=== PATIENT | female | born 1985 | race Caucasian/White ===

== ENCOUNTER 2023-05-24 07:47 | Outpatient (OUT) | payer OTHER, SELFPAY ==
[2023-05-24 08:39] LABS: Basophils Percent Auto 0.5 % (0.2-2.0); Eosinophils Absolute Auto 0.2 10^3/uL (0.0-0.7); Eosinophils Percent Auto 3.7 % (0.9-7.0); Hematocrit 37.6 % (36.0-48.0); Hemoglobin 12.5 g/dL (12.0-16.0); Immature Granulocytes Abs Auto 0.03 10^3/uL (0.00-0.03); Immature Granulocytes Pct Auto 0.5 % (0.0-0.5); Lymphocytes Absolute Auto 1.8 10^3/uL (1.2-3.8); Lymphocytes Percent Auto 27.5 % (20.5-60.0); Mean Corpuscular HGB Conc 33.2 g/dL (29.9-35.2); Mean Corpuscular Hemoglobin 30.7 pg (26.7-34.0); Mean Corpuscular Volume 92.4 fL (81.0-99.0); Mean Platelet Volume 10.2 fL (9.5-13.5); Monocytes Absolute Auto 0.8 10^3/uL (0.3-0.8); Monocytes Percent Auto 11.9 % (1.7-12.0); Neutrophils Absolute Auto 3.6 10^3/uL (1.4-6.5); Neutrophils Percent Auto 55.9 % (43.0-75.0); Platelet Count 261 10^3/uL (150-450); Red Blood Count 4.07 10^6/uL (4.20-5.40); Red Cell Distribution Width 12.8 % (11.0-15.0); White Blood Count 6.5 10^3/uL (4.0-11.0)
[2023-05-24 08:44] LABS: Estimated Average Glucose 94 mg/dL; Glycohemoglobin A1C 4.9 % (4.5-6.2)
[2023-05-24 08:57] LABS: Alanine Aminotransferase 23 U/L (14-59); Albumin Globulin Ratio 0.9; Albumin Level 3.5 g/dL (3.4-5.0); Alkaline Phosphatase 77 U/L (46-116); Anion Gap 11.4; Aspartate Amino Transferase 15 U/L (15-37); BUN Creatinine Ratio 16.9; Bilirubin Total 0.4 mg/dL (0.2-1.0); Calcium 8.9 mg/dL (8.5-10.1); Carbon Dioxide 28.5 mmol/L (21.0-32.0); Chloride 101 mmol/L (98-107); Chol HDL Ratio 3.8; Cholesterol 230 mg/dL (<=200); Estimated GFR (African America >60 (>=60); Estimated GFR (Non-African Ame >60 (>=60); Free T3 2.48 pg/mL (2.18-3.98); Globulin 3.8 g/dL; Glucose 91 mg/dL (74-106); HDL Cholesterol 61 mg/dL (40-60); Potassium 3.9 mmol/L (3.5-5.1); Sodium 137 mmol/L (136-145); Thyroid Stimulating Hormone 2.367 uIU/mL (0.358-3.740); Total Protein 7.3 g/dL (6.4-8.2); Triglycerides 214 mg/dL (<=150); VLDL CHOLESTEROL 42.8 mg/dL
[2023-05-25 07:12] LABS: Vitamin D, 25-Hydroxy 27.9 ng/mL (30.0-100.0)
[2023-05-25 11:12] LABS: Insulin 5.5 uIU/mL (2.6-24.9)
== END 2023-05-24 07:48 | disposition home or self-care (01) ==
LOC: LAB 07:50
PROVIDERS: PCP Nurse Practitioner Family; Visit Provider Nurse Practitioner Family
DX: Z00.00 Encounter for general adult medical examination without abnormal findings (principal)
CPT/HCPCS: 36415; 80053; 80061; 82306; 83036; 83525; 83540; 84436; 84443; 84481; 85025

== ENCOUNTER 2024-06-27 19:34 | Outpatient (REF) | payer OTHER, SELFPAY ==
[2024-07-03 14:09] LABS: Age Gdln ACOG Testing Note (.); HPV Aptima Negative (Negative); IGP, Aptima HPV, rfx 16/18,45 Note (.)
== END 2024-06-27 19:35 | disposition home or self-care (01) ==
LOC: LAB 19:34
PROVIDERS: PCP Nurse Practitioner Family; Visit Provider Physician Assistant
DX: Z01.419 Encounter for gynecological examination (general) (routine) without abnormal findings (principal)
CPT/HCPCS: 87624; 88175

== ENCOUNTER 2025-05-03 07:53 | Outpatient (OUT) | payer OTHER, SELFPAY ==
[2025-05-03 09:06] LABS: Hematocrit 38.5 % (36.0-48.0); Hemoglobin 12.7 g/dL (12.0-16.0); Immature Granulocytes Abs Auto 0.02 10^3/uL (0.00-0.03); Immature Granulocytes Pct Auto 0.3 % (0.0-0.5); Lymphocytes Absolute Auto 1.8 10^3/uL (1.2-3.8); Mean Corpuscular HGB Conc 33.0 g/dL (29.9-35.2); Mean Corpuscular Hemoglobin 30.5 pg (26.7-34.0); Mean Corpuscular Volume 92.3 fL (81.0-99.0); Platelet Count 296 10^3/uL (150-450); Red Blood Count 4.17 10^6/uL (4.20-5.40); White Blood Count 7.1 10^3/uL (4.0-11.0)
[2025-05-03 09:47] LABS: Iron 95.0 ug/dL (50.0-170.0)
[2025-05-03 09:56] LABS: Alanine Aminotransferase 26 U/L (14-59); Albumin Globulin Ratio 1.0; Albumin Level 3.8 g/dL (3.4-5.0); Alkaline Phosphatase 71 U/L (46-116); Anion Gap 8.9; Aspartate Amino Transferase 19 U/L (15-37); Blood Urea Nitrogen 10.0 mg/dL (7.0-18.0); Calcium 9.2 mg/dL (8.5-10.1); Carbon Dioxide 30.2 mmol/L (21.0-32.0); Chloride 104 mmol/L (98-107); Cholesterol 233 mg/dL (<=200); Estimated GFR (African America >60 (>=60 mL/min/1.73m^2); Estimated GFR (Non-African Ame >60 (>=60 mL/min/1.73m^2); Free T3 2.80 pg/mL (2.18-3.98); Globulin 3.8 g/dL; Glucose 99 mg/dL (74-106); HDL Cholesterol 55 mg/dL (40-60); Potassium 4.1 mmol/L (3.5-5.1); Sodium 139 mmol/L (136-145); Thyroid Stimulating Hormone 1.955 uIU/mL (0.358-3.740); Total Protein 7.6 g/dL (6.4-8.2); Triglycerides 143 mg/dL (<=150); VLDL CHOLESTEROL 28.6 mg/dL
== END 2025-05-03 07:54 | disposition home or self-care (01) ==
LOC: LAB 07:55
PROVIDERS: PCP Nurse Practitioner Family; Visit Provider Family Medicine
DX: Z00.00 Encounter for general adult medical examination without abnormal findings (principal)
CPT/HCPCS: 36415; 80053; 80061; 82306; 83036; 83540; 84436; 84443; 84481; 85025

== ENCOUNTER 2025-06-06 15:08 | Outpatient (OUT) | payer OTHER, SELFPAY ==
--- OUTSIDE RECORDS SUMMARY | 2024-04-25 06:00 | XMS_ITS ---
Author Organization [facility] in [place] Address [address] [place] [address] Care Team Providers Care Mounter Name Role Phone Margarita Kurtz Primary Care Provider Allergies No Known Allergies REASON FOR VISIT Annual Wellness Medications Medication SIG (Take, Route, Frequency, Duration) Notes Start Date End Date Status Levothyroxine Sodium 25 MCG take 1 table t by mouth every morning ON AN EMPTY STOMACH for 90 days Active Social History Tobacco Use: Social History Observation Description Date Details (start date - stop date) Never Smoker NA - NA Tobacco Use/Smoking Question Answer Notes Patient is a nonsmoker AUDIT-C (Standard) Question Answer Notes Did you have a drink contain ing alcohol in the past year? Yes How often did you have six o r more drinks on one occasion in the past year? Less than monthly (1 point) How many drinks did you have on a typical day when you were drinking in the past year? 1 or 2 drinks (0 point) How often did you have a dri nk containing alcohol in the past year? 2 to 4 times a month (2 points) Points 3 Interpretation Positive Vital Signs Weight 191.0 lbs 04/25/2024 Height 67 in 04/25/2024 Blood pressure systolic 112 mm Hg 04/25/20 24 Blood pressure diastolic 68 mm Hg 024 BMI 29.91 kg/m2 04/25/2024 Encounters Encounter Location Date Provider Diagnosis [facility] [address] [place] [address] 04/25/2024 Margarita Kurtz Wellness examination Z00.00 and Hypothyroid E03.9 Assessments Encounter Date Diagnosis (ICD Code) Assessment Notes Treatment Notes Treatment Clinical Notes Section Notes 04/25/2024 Wellness examination (ICD-10 - Z00.00) ROS done exam done sees OBGYN no concerns 04/25/2024 Hypothyroid (ICD-10 - E03.9) Plan Of Treatment Medication Medication Name Sig Start Date Stop Date Notes Levothyroxine Sodium 25 MCG take 1 table t by mouth every morning ON AN EMPTY STOMACH for 90 days Treatment Notes Assessment Notes Wellness examination ROS done exam done sees OBGYN no concerns Pending Test Test Name Order Date CMP (COMPLETE METABOLIC PANEL) 4 HEMOGLOBIN A1C (GLYCO) 04/25/2024 INSULIN, TOTAL 04/25/2024 LIPID PANEL (CHOL/TRIG/HDL/LDL) 04/25/20 24 CBC WITH DIFF 04/25/2024 THYROID PANEL (T4/TSH/FREE T3) 4 Next Appt Details Follow Up: 1 Year,pratimanKurt n: Progress Notes * Yesenia KAUR NDOB:1985 (38 yo F)Acc No.[id number]:04/25/2024 Progress Note Patient: Yesenia Santiago EA Provider: Dottie Kurtz ([facility]), OPERATIONS SUPPORT ANALYST :1985 A ge:38 Y S ex:Female Date:04/25/2024 Address:[facility] [address] [place] , [id number] Pcp:MARGARITA KURTZ Check In:09:49 AM ESTCheck O ut:10:05 AM EST Subjective: * Chief Complaints: * 1 . Annual Wellness. * HPI: D epression Screening: PHQ-2 (2015 Edition) L ittle interest or pleasure in doing things??Not at all F eeling down, depressed, or hopeless? 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 * ROS: G eneral/Constitutional: Fever d enies. H eadache d enies. W eight loss?denies. O phthalmologic: Discharge d enies. E ye Pain d enies. I tching and redness d enies. E NT: Nasal discharge d enies. N rachel congestion d enies.?Sore throat d enies. C ardiovascular: Chest tightness/ heavy pressure d enies. R apid heart rate d enies. S welling of extremities d enies. C hest pain d enies. ? R espiratory: Productive cough d enies. C hest pain d enies. C ough d enies. S hortness of breath d enies. W heezing d enies. ? G astrointestinal: Abdominal pain d enies. C onstipation d enies. D ecreased appetite d enies. D iarrhea d enies. N ausea d enies. V omiting?denies. G enitourinary: Urinary incontinence d enies. P ainful urination d enies. M usculoskeletal: Back pain d enies. N rodney pain d enies. M uscle aches d enies. S kin: Rash d enies. S kin lesion(s) d enies. ? * Active Problem List E03.9 Hypothyroid Modified On:05/20/2023/U Status:confirmed E78.1 Hypertriglyceridemia Modified On:05/20/2023/U Status:confirmed E55.9 Vitamin D deficiency , unspecified Modified On:05/25/2023U Status:confirmed * Medical History: H ypothyroid, Hypertriglyceridemia. * Surgical History: C -Section . * Hospitalization/Major Diagno stic Procedure: s ee above . * Family History: F ather: alive, hyperlipidemia. M other: , fatal [place], diagnosed with Unspecified heart disease. B rother(s): alive. P aternal Grandfather: skin cancer, diagnosed with Other malignant neoplasm of unspecified site. P aternal Grandmother: breast ca, diagnosed with Other malignant neoplasm of unspecified site. M aternal Grandfather: [place]. M aternal Grandmother: lung ca, diagnosed with Other malignant neoplasm of unspecified site. 1 brother(s) - healthy. 1 son(s) , 1 daughter(s) - healthy. . * Social History: T obacco Use: T obacco Use/Smoking P atient is a n onsmoker D rug/Alcohol: A MIK-C (Standard) D id you have a drink containing alcohol in the past year? Y es H ow often did you have six or more drinks on one occasion in the past year? L ess than monthly (1 point) H ow many drinks did you have on a typical day when you were drinking in the past year? 1 or 2 drinks (0 point) H ow often did you have a drink containing alcohol in the past year? 2 to 4 times a month (2 points) P oints 3 I nterpretation P ositive * Medications: T aking Levothyroxine Sodium 25 MCG Tablet take 1 tablet by mouth every morning ON AN EMPTY STOMACH * Allergies: N .K.D.A. Objective: * Vitals: W t:191.0lbs, Ht: 67 in, BP:112/68mm Hg, BMI:29.91Index, Ht-cm: 170.18 cm, Wt-k.64 kg. * Examination: G eneral Examinations: GENERAL APPEARANCE: a lert and oriented, i n no acute distress. EYES: c onjunctiva normal, sclera non-icteric. EARS: c erumen on right. NOSE: n ormal external appearance. LUNGS: c lear to auscultation bilaterally. CARDIO: r egular rate and rhythm, S1, S2 normal, no edema.? ABDOMEN: s oft, nontender. MUSCULOSKELETAL G ait and station normal. SKIN: w arm and dry. Assessment: * Assessment: 1. W ellness examination - Z00.00 (Primary) 2 . H ypothyroid - E03.9 Plan: * Treatment: 2. H ypothyroid Refill Levothyroxine Sodium Tablet, 25 MCG, take 1 tablet by mouth every morning ON AN EMPTY STOMACH, 90 days, 90, Refills 3. 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 Depression Screening PHQ-2 (2015 Edition) Little interest or pleasure in doing things?: Not at all Feeling down, depressed, or hopeless?: N ot at all Total Score: 0 Examination Category Sub-Category Detail Notes Category Not es General Examinations GENERAL APPEARANCE: alert a nd oriented, in no acute distress EYES: conjunctiva normal, sclera non-icteric EARS: cerumen on right NOSE: normal external appe arance THROAT: CARDIO: regular rate and rhy thm, S1, S2 normal, no edema LUNGS: clear to auscultatio n bilaterally ABDOMEN: soft, nontender SKIN: warm and dry BACK: MUSCULOSKELETAL: Gait and station nor mal LYMPH NODES:
--- OUTSIDE RECORDS SUMMARY | 2025-04-24 04:45 | XMS_ITS ---
Author Organization [facility] in [place] Address [address] [place] [address] Care Team Providers Care Dry Mill Operator Name Role Phone Margarita Kurtz Primary Care Provider [phone] Abundio Gregory Unavailable [phone] Allergies No Known Allergies REASON FOR VISIT Wellness, Discuss Thyroid Social History Tobacco Use: Social History Observation Description Date Details (start date - stop date) Never Smoker NA - NA Tobacco Use/Smoking Question Answer Notes Patient is a nonsmoker AUDIT-C (Standard) Question Answer Notes Did you have a drink containing alcohol in the p ast year? No Points 0 Interpretation Negative Problems Problem Type SNOMED Code ICD Code Onset Dates Problem Status W/U Status Risk Notes Problem Well adult ([id number]) Well adult (Z00.00) Active confirmed Vital Signs Weight 192.0 lbs 04/24/2025 Height 67 in 04/24/2025 Blood pressure systolic 116 mm Hg 04/24/20 25 Blood pressure diastolic 68 mm Hg 025 BMI 30.07 kg/m2 04/24/2025 Encounters Encounter Location Date Provider Diagnosis [facility] [address] [place] [address] 04/24/2025 Abundio Gregory Well adult Z00.0 0 Assessments Encounter Date Diagnosis (ICD Code) Assessment Notes Treatment Notes Treatment Clinical Notes Section Notes 04/24/2025 Well adult (ICD-10 - Z00.00) Plan Of Treatment Pending Test Test Name Order Date HEMOGLOBIN A1C (GLYCO) 04/24/2025 IRON, TOTAL 04/24/2025 LIPID PANEL (CHOL/TRIG/HDL/LDL) 04/24/20 25 VITAMIN D, 25 LEVEL (TOTAL) 04/24/2025 THYROID PANEL (T4/TSH/FREE T3) 5 CMP (COMP MET HAND) w/eGFR CKD-EPI 2024 CBC WITH DIFF 04/24/2025 Progress Notes * Yesenia KAUR NDOB:1985 (39 yo F)Acc No.[id number]:04/24/2025 Progress Note Patient: Yesenia Santiago EA Provider: Yuli Gregory ([facility])MD :1985 A ge:39 Y S ex:Female Date:04/24/2025 Address:[facility] [address] [place] , [id number] Pcp:Margarita Kurtz Check In:08:37 AM ESTCheck O ut:08:49 AM EST Subjective: * Chief Complaints: * W ellnessDiscuss Thyroid * HPI: G eneral: stopped thyroid about 9 month ago - no se from meds -. * ROS: E ENT: hearing changes d enies. v isual changes d enies.?non-healing mouth sores d enies. s wollen glands or neck lumps d enies. h oarseness d enies. s ore throat d enies. d ifficulty swallowing d enies. n ose bleeds d enies. n rachel congestion d enies. e ar ache d enies. e ar discharge?denies. r inging in ears d enies. l ight sensitivity d enies. e ye pain d enies. b lurring d enies. e ye irritation d enies. d ouble vision d enies.?vision loss d enies. G eneral/Constitutional: Sweats: D enies. F atigue d enies. S leep problems d enies. A norexia d enies. M alaise d enies. W eight loss d enies.?Fatigue or Weakness d enies. F ever or Chills d enies. C ardiovascular: Shortness of Breath w/lying flat d enies. L ightheadedness/dizziness d enies. C hest tightness/ heavy pressure d enies. S welling of legs, ankles, or feet d enies. W aking up with shortness of breath d enies. C hest pain denies. P alpitations d enies. W eight gain d enies. R espiratory: Chronic or frequent cough d enies. C oughing up blood?denies. D ifficulty breathing d enies. P roductive cough d enies. S noring?denies. S hortness of breath that awakens from sleep (PND) d enies. C hest pain d enies. S putum production d enies. W heezing d enies. M usculoskeletal: Joint pain d enies. J oint Fluid d enies. B ack pain d enies. K nee pain d enies. N rodney pain d enies. J oint Stiffness d enies. M uscle cramps d enies. W eakness of muscles d enies. A rthritis d enies. M uscle aches d enies. P ain in shoulder(s) d enies. S wollen joints d enies. * Active Problem List E03.9 Hypothyroid Modified On:05/20/2023/U Status:confirmed E78.1 Hypertriglyceridemia Modified On:05/20/2023/U Status:confirmed E55.9 Vitamin D deficiency , unspecified Modified On:05/25/2023/U Status:confirmed Z00.00 Well adult Modified On:04/24/2025/U Status:confirmed * Medical History: * Surgical History: C -Section * Hospitalization/Major Diagno stic Procedure: s ee above * Family History: F ather: alive, hyperlipidemia. M other: , fatal [place], diagnosed with Unspecified heart disease. B rother(s): alive. P aternal Grandfather: skin cancer, diagnosed with Other malignant neoplasm of unspecified site. P aternal Grandmother: breast ca, diagnosed with Other malignant neoplasm of unspecified site. M aternal Grandfather: [place]. M aternal Grandmother: lung ca, diagnosed with Other malignant neoplasm of unspecified site. 1 brother(s) - healthy. 1 son(s) , 1 daughter(s) - healthy. . * Social History: T obacco Use: T obacco Use/Smoking P atient is a n onsmoker D rug/Alcohol: A MIK-C (Standard) D id you have a drink containing alcohol in the past year? N o P oints 0 I nterpretation N egative * Medications: D iscontinuedLevothyroxine Sodium 25 MCG Tablet take 1 tablet by mouth every morning ON AN EMPTY STOMACH Medication List reviewed and reconciled with the patientDiscontinued Levothyroxine Sodium 25 MCG Tablet take 1 tablet by mouth every morning ON AN EMPTY STOMACH Medication List reviewed and reconciled with the patient * Allergies: N .K.D.A.no[Allergies Verified] Objective: * Vitals: W t:192.0lbs, Ht: 67 in, BP:116/68mm Hg, BMI:30.07Index, Ht-cm: 170.18 cm, Wt-k.09 kg. * Examination: P hysical Exam: GENERAL: w ell developed, well nourished, in no acute distress. HEAD: n ormocephalic/atraumatic. EYES: p upils equal, round and reactive to light, conjunctivae and sclerae normal. EARS: n o deformity or lesion of external ear, canals and TM appear normal bilaterally, TM's intact, not inflamed with normal light reflex, hearing grossly normal to conversational speech. NOSE: n o deformity, discharge, inflammation, or lesions.? MOUTH: m ucous membranes moist, normal oropharynx and posterior pharynx without lesions or exudates, tongue normal, dentition normal. NECK: n rodney supple, no masses or palpable cervical nodes, trachea midline, thyroid without nodules, masses, tenderness, or enlargement. CHEST: n o chest wall deformity, no chest wall tenderness.? LUNGS: n ormal respiratory effort and clear to auscultation, no wheezes, rales, or rhonchi, good air exchange. CARDIO: r egular rate and rhythm, normal S1 and S2, nor murmur, rub, or gallop. PULSES: n ormal capillary refill. ABDOMEN: s oft, non-distended, non-tender, no masses. MUSCULOSKELETAL: n o deformity or scoliosis noted, normal range of motion, joints normal, no erythema, edema, effusion, or ecchymosis. EXTREMITY: n o clubbing, cyanosis, edema, or deformity with normal ROM in both upper and lower bilateral extremities. NEUROLOGIC: g rossly normal. SKIN: n o rashes, ulcerations, or suspicious lesions. LYMPH NODES: n o cervical adenopathy, nodes normal. MENTAL STATUS: a lert and oriented x3, normal mood and affect. Assessment: * Assessment: 1. W ell adult - Z00.00 (Primary) Plan: * Treatment: * Procedure Codes: * Preventive Medicine: Screenings/Counseling: B [place] ACTION PLAN Above Normal BMI Follow-up D ietary management education, guidance, and counseling * * Sign off status: Completed Visit Status: C HK (Check Out) true * Provider: Yuli Gregory ([facility])MD Date: 0 04/24/2025 Generated for Printi ng/Faxing/eTransmitting on: 0 06/06/2025 03:11 PM EDT History and Physical Notes * HPI (History of Present Illness) Category Sub-Category Detail Notes Category Not es General stopped thyroid about 9 month ago - no se from meds - Examination Category Sub-Category Detail Notes Category Not es Physical Exam GENERAL: well developed, well nourished, in no acute distress HEAD: normocephalic/atraum atic EYES: pupils equal, round and reactive to light, conjunctivae and sclerae normal EARS: no deformity or lesi on of external ear, canals and TM appear normal bilaterally, TM's intact, not inflamed with normal light reflex, hearing grossly normal to conversational speech NOSE: no deformity, discha rge, inflammation, or lesions MOUTH: mucous membranes farnaz st, normal oropharynx and posterior pharynx without lesions or exudates, tongue normal, dentition normal NECK: neck supple, no mass es or palpable cervical nodes, trachea midline, thyroid without nodules, masses, tenderness, or enlargement CHEST: no chest wall deform ity, no chest wall tenderness LUNGS: normal respiratory e ffort and clear to auscultation, no wheezes, rales, or rhonchi, good air exchange CARDIO: regular rate and rhy thm, normal S1 and S2, nor murmur, rub, or gallop PULSES: normal capillary ref ill ABDOMEN: soft, non-distended, non-tender, no masses RECTAL: MUSCULOSKELETAL: no deformity or scol iosis noted, normal range of motion, joints normal, no erythema, edema, effusion, or ecchymosis EXTREMITY: no clubbing, cyanosi s, edema, or deformity with normal ROM in both upper and lower bilateral extremities NEUROLOGIC: grossly normal SKIN: no rashes, ulceratio ns, or suspicious lesions LYMPH NODES: no cervical adenopat hy, nodes normal MENTAL STATUS: alert and oriented x 3, normal mood and affect
--- OUTSIDE RECORDS SUMMARY | 2025-05-03 18:23 | XMS_ITS ---
Author Organization [facility] [place] Address [address] [place] [address] Care Team Providers Care Camera Operator Name Role Phone Margarita Kurtz Primary Care Provider [phone] Bri Abundio Unavailable [phone] REASON FOR VISIT review labs Encounters Encounter Location Date Provider Diagnosis [facility] [address] [place] [address] 05/03/2025 Abundio Gregory Hypothyroid E03. 9 Assessments Encounter Date Diagnosis (ICD Code) Assessment Notes Treatment Notes Treatment Clinical Notes Section Notes 05/03/2025 Hypothyroid (ICD-10 - E03.9) Plan Of Treatment Pending Test Test Name Order Date THYROID PANEL (T4/TSH/FREE T3) Progress Notes * GOReinierYesenia NDOB:1985 (39 yo F)Acc No.[id number]:05/03/2025 Patient: Jack HENRIQUEZ Yesenia Irene :1985 A ge:39 Y S ex:Female Address:[address] [place] [address] Subjective: * Chief Complaints: * R eview labs * Medical History: * Surgical History: * Hospitalization/Major Diagno stic Procedure: * Medications: Objective: * Vitals: * Physical Examination: Assessment: * Assessment: 1. H ypothyroid - E03.9 (Primary) Plan: * Treatment: * Procedure Codes: * true * Date: Generated for Printi ng/Faxing/eTransmitting on: 0 06/06/2025 03:11 PM EDT
--- OUTSIDE RECORDS SUMMARY | 2025-06-06 15:12 | XMS_ITS | Patient Health Record ---
Author Organization [facility] in [place] Address [address] [place] [address] Care Team Providers Care Medical Claims Representative Name Role Phone Margarita Kurtz Primary Care Provider [phone] Abundio Gregory Nikos [phone] Allergies No Known Allergies Results Component Value Reference Range Notes CBC AUTO DIFF Reviewed date:05/03/2025 10:25:04 PM Interpretation: Performing Lab: Notes/Report: [facility] , White Blood Count 7.1 4.0-11.0 10 3/uL Red Blood Count 4.17 4.20-5.40 10 6/uL Hemoglobin 12.7 12.0-16.0 g/dL Hematocrit 38.5 36.0-48.0 % Mean Corpuscular Volume 92.3 81.0-99.0 fL Mean Corpuscular Hemoglobin 30.5 26.7-34.0 pg Mean Corpuscular HGB Conc 33.0 29.9-35.2 g/dL Red Cell Distribution Width 12.4 11.0-15.0 % Platelet Count 296 150-450 10 3/uL Mean Platelet Volume 10.5 9.5-13.5 fL Neutrophils Percent Auto 61.0 43.0-75.0 % Lymphocytes Percent Auto 24.5 20.5-60.0 % Monocytes Percent Auto 9.0 1.7-12.0 % Eosinophils Percent Auto 4.6 0.9-7.0 % Basophils Percent Auto 0.6 0.2-2.0 % Immature Granulocytes Pct Auto 0.3 0.0-0.5 % Neutrophils Absolute Auto 4.4 1.4-6.5 10 3/uL Lymphocytes Absolute Auto 1.8 1.2-3.8 10 3/uL Monocytes Absolute Auto 0.6 0.3-0.8 10 3/uL Eosinophils Absolute Auto 0.3 0.0-0.7 10 3/uL Basophils Absolute Auto 0.0 0.0-0.1 10 3/uL Immature Granulocytes Abs Auto 0.02 0.00-0.03 10 3/uL Performing Lab: see note ML - [facility] FREE T3 Reviewed date:05/03/2025 10:25:04 PM Interpretation: Performing Lab: Notes/Report: [facility] , Free T3 2.80 2.18-3.98 pg/mL Performing Lab: see note ML - [facility] LB LIPID PROFILE Reviewed date:05/03/2025 10:25:04 PM Interpretation: Performing Lab: Notes/Report: [facility] , Triglycerides 143 <=150 mg/dL Cholesterol 233 <=200 mg/dL HDL Cholesterol 55 40-60 mg/dL <40 mg/dl - HIGH CARDIOVASCULAR RISK > or =60 mg/dl - LOW CARDIOVASCULAR RISK LDL Cholesterol Calculated 150.0 100-129 mg/dl NEAR OR ABOVE OPTIMAL 130-159 mg/dl BORDERLINE HIGH <100 mg/dl OPTIMAL >190 mg/dl VERY HIGH 160-189 mg/dl HIGH VLDL CHOLESTEROL 28.6 Chol HDL Ratio 4.2 >11.0 HIGH RISK 7.1 - 11.0 MODERATE RISK 3.3 - 4.4 LOW RISK 4.4 - 7.1 AVERAGE RISK Performing Lab: see note ML - [facility] LB T4 Reviewed date:05/03/2025 10:25:04 PM Interpretation: Performing Lab: Notes/Report: [facility] , T4 Thyroxine 3.30 4.80-13.90 ug/dL Performing Lab: see note ML - [facility] LB TSH Reviewed date:05/03/2025 10:25:04 PM Interpretation: Performing Lab: Notes/Report: [facility] , Thyroid Stimulating Hormone 1.955 0.358-3.740 u IU/mL Performing Lab: see note ML - [facility] LB VITAMIN D 25 [place] Reviewed date:05/03/2025 10:25:04 PM Interpretation: Performing Lab: Notes/Report: [facility] , Vitamin D 34.4 20-<30 ng/mL Vit D insufficient 30-100 ng/mL Vit D sufficient <20 ng/mL Vit D deficient >100 ng/mL Potential Toxicity Performing Lab: see note ML - [facility] LB IGP,Aptima HPV,Age Gdln Reviewed date:07/03/2024 02:38:48 PM Interpretation: Performing Lab: Notes/Report: BRUSH-SPATULA CERVIX ENDOCERVIX [facility] , Age Gdln ACOG Testing Note . Source.............Cervix;En docervix ---- [address] [place] [address] ---- L-Low Normal,H-High Normal,LL-Alert Low,HH-Alert High Age Algo ACOG Sharon... 30-65 01 Clinician Provided Cytology Information <-Panic Low,>-Panic High,A-Abnormal,AA-Critical Abnormal TESTS RESULT FLAG UNITS REF RANGE LAB 01 [facility] No. of containers..01 ThinPrep Vial FLAG LEGEND: ---- Performed at: Althea Gardiner MD, IGP, Aptima HPV, rfx 16/18,45 Note . Carolina Avelar, Pipeliner (ASC) Satisfactory for evaluation. Endocervical and/or squamous metaplastic Performed at: Althea Gardiner MD, Criteria not met, HPV Genotype not performed. detection of premalignant and malignant conditions of the ---- cancer. Both false-positive and false-negative reports do DIAGNOSIS: 02 HPV Genotype Reflex Note 02 Test Methodology: Note 02 Specimen adequacy: 02 L-Low Normal,H-High Normal,LL-Alert Low,HH-Alert High Performed by: 02 The Pap smear is a screening test designed to aid in the TESTS RESULT FLAG UNITS REF RANGE LAB should not be used as the sole means of detecting cervical [address] [place] [address] ---- FLAG LEGEND: cells (endocervical component) are present. . 02 ---- occur. NEGATIVE FOR INTRAEPITHELIAL LESION OR MALIGNANCY. <-Panic Low,>-Panic High,A-Abnormal,AA-Critical Abnormal uterine cervix. It is not a diagnostic procedure and 02 [facility] the use of an image guided system. This liquid based ThinPrep(R) pap test was screened with Note: Note 02 HPV Aptima Negative Negative Head Swamper: Althea Gardiner MD, Phone: [phone] without differentiation. Head Swamper: Althea Gardiner MD, Phone: [phone] risk HPV types (16,18,31,33,35,39,45,51,52, 56,58,59,66,68) [address] [place], [place] [phone] Performed at: [facility] [address] [place], [place] [id number] This nucleic acid amplification test detects fourteen high- Performed at: =[facility] Performing Lab: see note [facility] LB PROF 14(COMP METB) Reviewed date:05/03/2025 10:25:04 PM Interpretation: Performing Lab: Notes/Report: [facility] , Sodium 139 136-145 mmol/L Potassium 4.1 3.5-5.1 mmol/L Chloride 104 98-107 mmol/L Carbon Dioxide 30.2 21.0-32.0 mmol/L Anion Gap 8.9 Glucose 99 74-106 mg/dL Blood Urea Nitrogen 10.0 7.0-18.0 mg/dL Creatinine 0.71 0.55-1.02 mg/dL Estimated GFR ( Lanny >60 >=60 mL/min/1.73m 2 Estimated GFR (Non- Coleen >60 >=60 mL/min/1.73m 2 BUN Creatinine Ratio 14.1 Calcium 9.2 8.5-10.1 mg/dL Bilirubin Total 0.5 0.2-1.0 mg/dL Aspartate Amino Transferase 19 15-37 U/L Alanine Aminotransferase 26 14-59 U/L Alkaline Phosphatase 71 46-116 U/L Total Protein 7.6 6.4-8.2 g/dL Albumin Level 3.8 3.4-5.0 g/dL Globulin 3.8 Albumin Globulin Ratio 1.0 Performing Lab: see note ML - [facility] LB IRON Reviewed date:05/03/2025 10:25:04 PM Interpretation: Performing Lab: Notes/Report: [facility] , Iron 95.0 50.0-170.0 ug/dL Performing Lab: see note ML - [facility] LB GLYCOHEMOGLOBIN A1C Reviewed date:05/03/2025 10:25:04 PM Interpretation: Performing Lab: Notes/Report: [facility] , Glycohemoglobin A1C 5.2 4.5-6.2 % ADA THERAPEUTIC TARGET < 7.0 ADA RECOMMENDED LIMIT 4.0 - 6.0 > 7.0 ACTION SUGGESTED Estimated Average Glucose 103 Performing Lab: see note ML - [facility] Reason For Referral No Information Social History Tobacco Use: Social History Observation Description Date Details (start date - stop date) Never Smoker NA - NA Tobacco Use/Smoking Question Answer Notes Patient is a nonsmoker Alcohol Screen (Audit-C) Question Answer Notes Did you have a drink contain ing alcohol in the past year? Yes How often did you have 6 or more drinks on one occasion in the past year? Never (0 point) How many drinks did you have on a typical day when you were drinking in the past year? 1 or 2 drinks (0 point) How often did you have a dri nk containing alcohol in the past year? Less than monthly (1 point) Points 1 Interpretation Negative AUDIT-C (Standard) Question Answer Notes Did you have a drink containing alcohol in the p ast year? No Points 0 Interpretation Negative Problems Problem Type SNOMED Code ICD Code Onset Dates Problem Status W/U Status Risk Notes Problem 55067645 Vitamin D defici ency, unspecified (E55.9) Active confirmed Problem Hypothyroid (93036815) Hypothyroid (E03.9) Active confirmed Problem Hypertriglyceridemia (079944172) Hypertriglyceridemia (E78.1) Active confirmed Problem Well adult (748220413) Well adult (Z00.00) Active confirmed Vital Signs Blood pressure diastolic 68 mm Hg 04/24/2025 Height 67 in 04/24/2025 Blood pressure systolic 116 mm Hg 04/24/2025 Weight 192.0 lbs 04/24/2025 BMI 30.07 kg/m2 04/24/2025 Encounters Encounter Location Date Provider Diagnosis [address] [place] [address] 05/03/2025 Abundio Hoy Hypothyroid E03. [address] [address] 04/24/2025 Abundio Hoy Well adult Z00.0 0 Assessments Encounter Date Diagnosis (ICD Code) Assessment Notes Treatment Notes Treatment Clinical Notes Section Notes 04/24/2025 Well adult (ICD-10 - Z00.00) 05/03/2025 Hypothyroid (ICD-10 - E03.9) Plan Of Treatment Pending Test Test Name Order Date CMP (COMPLETE METABOLIC PANEL) 3 CMP (COMPLETE METABOLIC PANEL) 4 HEMOGLOBIN A1C (GLYCO) 04/25/2024 HEMOGLOBIN A1C (GLYCO) 04/24/2025 HEMOGLOBIN A1C (GLYCO) 05/20/2023 INSULIN, TOTAL 04/25/2024 IRON, TOTAL 04/24/2025 IRON, TOTAL 05/20/2023 LIPID PANEL (CHOL/TRIG/HDL/LDL) 05/20/20 23 LIPID PANEL (CHOL/TRIG/HDL/LDL) 04/24/20 25 LIPID PANEL (CHOL/TRIG/HDL/LDL) 04/25/20 24 CBC WITH DIFF 04/25/2024 CBC WITH DIFF 05/20/2023 VITAMIN D, 25 LEVEL (TOTAL) 05/20/2023 VITAMIN D, 25 LEVEL (TOTAL) 04/24/2025 Insulin Level 05/20/2023 THYROID PANEL (T4/TSH/FREE T3) 3 THYROID PANEL (T4/TSH/FREE T3) 4 THYROID PANEL (T4/TSH/FREE T3) 5 THYROID PANEL (T4/TSH/FREE T3) 5 CMP (COMP MET HAND) w/eGFR CKD-EPI 2024 CBC WITH DIFF 04/24/2025 Insurance Providers Payer Name Payer Address Payer Phone Subscriber Number Group Number Insured Name Patient Relationship to Insured Coverage Start Date Coverage End Date [employer] [address] [place], [place] [id number] Herberth Kaur Spouse - patient is the spouse of the insured Medical (General) History Medical History History ICD Code Hypothyroid E03.9 Hypertriglyceridemia E78.1 Surgical History Surgery Date(Month/Year) Hospitalization History Reason Date(Month/Year) see above
--- OUTSIDE RECORDS SUMMARY | 2025-06-06 15:12 | XMS_ITS | Encounter Summary ---
Author Organization [facility] Address [address] [place] [address] Care Team Providers Care Fire Alarm Technician Name Role Phone Unavailable Primary Care Provider Unavailabl e Encounter Details Date Type Department Care Team (Late st Contact Info) Description 07/18/2024 Abstract [facility] [address] [place] [id number] Layo Lundberg, [address] [place] [address] Social History Tobacco Use Types Packs/Day Years Used Date Smoking Tobacco: Never Assessed Comments No Sex and Gender Information Value Date Recorded Sex Assigned at Female 07/05/2024 12:37 PM EDT Legal Sex Female 7:18 PM EDT Gender Identity Female 07/05/2024 12:37 PM EDT Sexual Orientation Straight 07/05/2024 12 :37 PM EDT documented as of this encounter Plan of Treatment Not on file documented as of this encounter Visit Diagnoses Not on filedocumented in this encounter
--- OUTSIDE RECORDS SUMMARY | 2025-06-06 15:12 | XMS_ITS | Clinical Summary ---
Author Organization [facility] Address [address] [place] [address] Care Team Providers Care Braille Typist Name Role Phone Unavailable Primary Care Provider Unavailabl e Allergies No known active allergies Medications levothyroxine (Synthroid, Levoxyl) 25 MCG tablet take 1 tablet by mouth every morning ON AN EMPTY STOMACH for 90 days Active Social History Tobacco Use Types Packs/Day Years Used Date Smoking Tobacco: Never Assessed Comments No Sex and Gender Information Value Date Recorded Sex Assigned at Female 07/05/2024 12:37 PM EDT Legal Sex Female 7:18 PM EDT Gender Identity Female 07/05/2024 12:37 PM EDT Sexual Orientation Straight 07/05/2024 12 :37 PM EDT Last Filed Vital Signs Vital Sign Reading Time Taken Comments Blood Pressure 122/72 06/27/2024 2:07 PM EDT Pulse - - Temperature - - Respiratory Rate - - Oxygen Saturation - - Inhaled Oxygen Concentration - - Weight 86.6 kg (191 lb) 06/27/2024 2:07 PM EDT Height - - Body Mass Index - - Plan of Treatment Not on file Insurance JOSE Deluca [id number] [employer]
--- OUTSIDE RECORDS SUMMARY | 2025-06-06 15:12 | XMS_ITS | Encounter Summary ---
Author Organization [facility] Address [address] [place] [address] Care Team Providers Care Body Welder Name Role Phone Unavailable Primary Care Provider Unavailabl e Encounter Details Date Type Department Care Team (Late st Contact Info) Description 07/05/2024 Orders Only [facility] [address] [place] [address] Ameena Lee LPN [address] [place] [address] Social History Tobacco Use Types Packs/Day Years [...] on file documented as of this encounter Procedures Procedure Name Priority Date/Time Associated Diagnosis Comments PAP SMEAR Routine 06/27/2024 12:00 AM EDT documented in this encounter Results * Pap Smear (06/27/2024 12:00 AM EDT) Swab Cervical swab / Unknown us [facility] CYTOLOGY ORDERABLES Final Re sult EXTERNAL LAB documented in this encounter Visit Diagnoses Not on filedocumented in this encounter
[2025-06-06 16:07] LABS: Free T3 2.21 pg/mL (2.18-3.98); Thyroid Stimulating Hormone 1.870 uIU/mL (0.358-3.740)
--- OUTSIDE RECORDS SUMMARY | 2025-06-06 17:03 | XMS_ITS | CCD ---
Author Organization [facility] CliniSytn Care Team Providers Care Supervisor Vat House Name Role Phone KIMBERLY CROWDER Admitting Unavailable VEL, KIMBERLY Attending Unavailable VEL, KIMBERLY Primary Care Unavailable VEL, KIMBERLY Consulting Unavailable VLE, KIMBERLY Admitting Unavailable VEL, KIMBERLY Attending Unavailable VEL, KIMBERLY Primary Care Unavailable VEL, KIMBERLY Consulting Unavailable Unavailable Primary Care Provider JAMILA Peterson Attending Unavailable Medications Current Medications Medication Drug Class(es) Dates Sig (Normalized) Sig (Original) levothyroxine sodium 0.025 mg oral tablet (3 sources) l-Thyroxine take 1 tablet by mouth once daily in the morning levothyroxine (Synthroid, Levoxyl) 25 MCG tablet take 1 tablet by mouth every morning ON AN EMPTY STOMACH for 90 days Active Problems Problem Classification Problem Date Documented Da te Episodic/Chronic Thyroid disorders (4 sources) Hypothyroidism, unspecified; Translations: [HYPOTHYROIDISM UNSPECIFIED] Onset: 07-11-2022 Chronic Results Test Name Value Interpretation Reference Range Facility IGP,APTIMA HPV,AGE GDLNon AGE GDLN ACOG TESTING Note . [facility] Comment on above: TESTS RESULT FLAG UN ITS REF RANGE LAB Clinician Provided Cytology Information Source.............Cervix;Endocervix No. of containers..01 ThinPrep Vial Age Algo ACOG Sharon... 30-65 01 FLAG LEGEND: L-Low Normal,H-High Normal,LL-Alert Low,HH-Alert High <-Panic Low,>-Panic High,A-Abnormal,AA-Critical Abnormal Performed at: 01 =[address] [address] Althea Gardiner MD, HPV APTIMA Negative Negative [facility] Comment on above: This nucleic acid am plification test detects fourteen high- risk HPV types (16,18,31,33,35,39,45,51,52,56,58,59,66,68) without differentiation. Performed at: =[address] [id number] Windows Consultant: Althea Gardiner MD, Phone: [phone] Performed at: [address] [id number] Windows Consultant: Althea Gardiner MD, Phone: [phone] IGP, APTIMA HPV, RFX 16/18,45 Note . [facility] Comment on above: TESTS RESULT FLAG UN ITS REF RANGE LAB DIAGNOSIS: 02 NEGATIVE FOR INTRAEPITHELIAL LESION OR MALIGNANCY. Specimen adequacy: 02 Satisfactory for evaluation. Endocervical and/or squamous metaplastic cells (endocervical component) are present. Performed by: Torie Avelar, Glass Block Installer ([facility]) . 02 Note: Note 02 The Pap smear is a screening test designed to aid in the detection of premalignant and malignant conditions of the uterine cervix. It is not a diagnostic procedure and should not be used as the sole means of detecting cervical cancer. Both false-positive and false-negative reports do occur. Test Methodology: Note 02 This liquid based ThinPrep(R) pap test was screened with the use of an image guided system. HPV Genotype Reflex Note 02 Criteria not met, HPV Genotype not performed. FLAG LEGEND: L-Low Normal,H-High Normal,LL-Alert Low,HH-Alert High <-Panic Low,>-Panic High,A-Abnormal,AA-Critical Abnormal Performed at: [address] [address] Althea Gardiner MD, BRUSH-SPATULA CERVIX ENDOCERVIX [facility] [place] FREE THYROXINE INDEX T7on FTI 2.11 Normal 1.30-4.50 [facility] Comment on above: Performed By: #### T 7, TSH #### [facility] [address] [place] [address] Dr. Jamie Blum T3U 34.0 % Normal 30.0-39.0 [facility] Comment on above: Performed By: #### T 7, TSH #### [facility] [address] [address] [address] Jamie Blum T4 [Mass/Vol] 6.20 ug/dL Normal 4.80-13.90 [facility] Comment on above: Performed By: #### T 7, TSH #### [facility] [address] [place] [address] Dr. Jamie Blum TSHon 07-11-2022 TSH 2.370 uIU/mL Normal 0.358-3.740 [facility] Comment on above: Performed By: #### T 7, TSH #### [facility] [address] [place] [address] Dr. Jamie Blum INSULINon 05-02-2022 Insulin 5.9 uIU/mL Normal 2.6-24.9 [facility] Comment on above: Performed By: #### I NSULIN #### [facility] [address] [place] [address] Dr. Jamie Blum CBC AUTO DIFFon 05-01-2022 BASO # 0.1 103/ul Normal 0.0-0.1 [facility] Comment on above: Performed By: #### C BC #### [facility] [address] [place] [address] Dr. Jamie Blum Basophils/100 WBC (Bld) 0.6 % Normal 0.2-2.0 [facility] Comment on above: Performed By: #### C BC #### [facility] [address] [place] [address] Dr. Jamie Blum EO # 0.2 103/ul Normal 0.0-0.7 [facility] Comment on above: Performed By: #### C BC #### [facility] [address] [place] [address] Dr. Jamie Blum Eosinophils/100 WBC (Bld) 2.7 % Normal 0.9-7.0 [facility] Comment on above: Performed By: #### C BC #### [facility] [address] [place] [address] Dr. Jamie Blum Erythrocyte distribution width (RBC) [Ratio] 12.6 % Normal 11.0-15.0 [facility] Comment on above: Performed By: #### C BC #### [facility] [address] [place] [address] Dr. Jamie Blum Hematocrit (Bld) [Volume fraction] 38.6 % Normal 36.0-48.0 [facility] Comment on above: Performed By: #### C BC #### [facility] [address] [place] [address] Dr. Jamie Blum Hemoglobin (Bld) [Mass/Vol] 12.8 g/dL Normal 12.0-16.0 [facility] Comment on above: Performed By: #### C BC #### [facility] [address] [place] [address] Dr. Jamie Blum IG # 0.03 10e3/ul Normal 0.00-0.03 [facility] Comment on above: Performed By: #### C BC #### [facility] [address] [place] [address] Dr. Jamie Blum IG % 0.3 % Normal 0.0-0.5 [facility] Comment on above: Performed By: #### C BC #### [facility] [address] [place] [address] Dr. Jamie Blum LYMPH # 1.6 103/ul Normal 1.2-3.8 [facility] Comment on above: Performed By: #### C BC #### [facility] [address] [place] [address] Dr. Jamie Blum Lymphocytes/100 WBC (Bld) 17.4 % Critically low 20.5-60.0 [facility] Comment on above: Performed By: #### C BC #### [facility] [address] [place] [address] Dr. Jamie Blum MANUAL DIFF REQ NO Normal [facility] Comment on above: Performed By: #### C BC #### [facility] [address] [place] [address] Dr. Jamie Blum MCH (RBC) [Entitic mass] 30.6 pg Normal 26.7-34.0 [facility] Comment on above: Performed By: #### C BC #### [facility] [address] [place] [address] Dr. Jamie Blum MCHC (RBC) [Mass/Vol] 33.2 g/dL Normal 29.9-35.2 [facility] Comment on above: Performed By: #### C BC #### [facility] [address] [place] [address] Dr. Jamie Blum MCV (RBC) [Entitic vol] 92.3 fL Normal 81.0-99.0 [facility] Comment on above: Performed By: #### C BC #### [facility] [address] [place] [address] Dr. Jamie Blum MONO # 0.8 103/ul Normal 0.3-0.8 [facility] Comment on above: Performed By: #### C BC #### [facility] [address] [address] [address] Jamie Blum Monocytes/100 WBC (Bld) 8.8 % Normal 1.7-12.0 [facility] Comment on above: Performed By: #### C BC #### [facility] [address] [place] [address] Dr. Jamie Blum NEUT # 6.3 103/ul Normal 1.4-6.5 [facility] Comment on above: Performed By: #### C BC #### [facility] [address] [place] [address] Dr. Jamie Blum Neutrophils/100 WBC (Bld) 70.2 % Normal 43.0-75.0 [facility] Comment on above: Performed By: #### C BC #### [facility] [address] [place] [address] Dr. Jamie Blum Platelet mean volume (Bld) [Entitic vol] 10.2 fL Normal 9.5-13.5 [facility] Comment on above: Performed By: #### C BC #### [facility] [address] [place] [address] Dr. Jamie Blum PLT 274 103/ul Normal 150-450 [facility] Comment on above: Performed By: #### C BC #### [facility] [address] [place] [address] Dr. Jamie Blum RBC 4.18 106/ul Critically low 4.20-5.40 [facility] Comment on above: Performed By: #### C BC #### [facility] [address] [place] [address] Dr. Jamie Blum WBC 8.9 103/ul Normal 4.0-11.0 [facility] Comment on above: Performed By: #### C BC #### [facility] [address] [place] [address] Dr. Jamie Blum FREE THYROXINE INDEX T7on FTI 1.38 Normal 1.30-4.50 [facility] Comment on above: Performed By: #### L IPID, TSH, CMP, T7 #### [facility] [address] [address] [address] Jamie Blum T3U 32.0 % Normal 30.0-39.0 [facility] Comment on above: Performed By: #### L IPID, TSH, CMP, T7 #### [facility] [address] [address] [address] Jamie Blum T4 [Mass/Vol] 4.30 ug/dL Critically low 4.80-13.90 [facility] Comment on above: Performed By: #### L IPID, TSH, CMP, T7 #### [facility] [address] [address] [address] Jamie Blum GLYCOHEMOGLOBIN A1Con 2021 ADA RECOMMENDATION SEE BELOW Normal [facility] Comment on above: Result Comment: ADA RECOMMENDED LIMIT 4.0 - 6.0 ADA THERAPEUTIC TARGET < 7.0 ACTION SUGGESTED > 7.0 Performed By: #### A 1C #### [facility] [address] [address] [address] Jamie Blum Glucose [Mass/Vol] 108 mg/dL Normal [facility] Comment on above: Performed By: #### A 1C #### [facility] [address] [address] [address] Jamie Blum HbA1c (Bld) [Mass fraction] 5.4 % Normal 4.5-6.2 [facility] Comment on above: Performed By: #### A 1C #### [facility] [address] [address] [address] Jamie Blum IRONon 05-01-2022 Iron [Mass/Vol] 86.0 ug/dL Normal 50.0-170.0 [facility] Comment on above: Performed By: #### I PAULA #### [facility] [address] [address] [address] Jamie Blum LIPID PROFILEon 05-01-2022 CHOL-HDL RATIO NORM SEE BELOW Normal [facility] Comment on above: Result Comment: 3.3 - 4.4 LOW RISK 4.4 - 7.1 AVERAGE RISK 7.1 - 11.0 MODERATE RISK >11.0 HIGH RISK Performed By: #### L IPID, TSH, CMP, T7 #### [facility] [address] [address] [address] Jamie Blum Cholesterol [Mass/Vol] 240 mg/dL Critically high <=200 [facility] Comment on above: Performed By: #### L IPID, TSH, CMP, T7 #### [facility] [address] [address] [address] Jamie Blum Cholesterol in HDL [Mass/Vol] 46 mg/dL Normal 40-60 [facility] Comment on above: Performed By: #### L IPID, TSH, CMP, T7 #### [facility] [address] [address] [address] Jamie Blum Cholesterol in LDL [Mass/Vol] 118.0 mg/dL Normal [facility] Comment on above: Performed By: #### L IPID, TSH, CMP, T7 #### [facility] [address] [address] [address] Jamie Blum Cholesterol.total/Ch olesterol in HDL [Mass ratio] 5.2 {ratio} Normal [facility] Comment on above: Performed By: #### L IPID, TSH, CMP, T7 #### [facility] [address] [address] [address] Jamie Blum HDL NORMAL > or = 60 mg/dl - LO W CARDIOVASCULAR RISK <40 mg/dl - HIGH CARDIOVASCULAR RISK Normal [facility] Comment on above: Performed By: #### L IPID, TSH, CMP, T7 #### [facility] [address] [address] [address] Jamie Blum LDL CALC NORMAL SEE BELOW Normal [facility] Comment on above: Result Comment: <100 mg/dl OPTIMAL 100 - 129 mg/dl NEAR OR ABOVE OPTIMAL 130 - 159 mg/dl BORDERLINE HIGH 160 - 189 mg/dl HIGH >190 mg/dl VERY HIGH Performed By: #### L IPID, TSH, CMP, T7 #### [facility] [address] [address] [address] Jamie Blum Triglyceride [Mass/Vol] 380 mg/dL Critically high <=150 [facility] Comment on above: Performed By: #### L IPID, TSH, CMP, T7 #### [facility] [address] [address] [address] Jamie Blum VLDL CALC 76.0 mg/dL Normal [facility] Comment on above: Performed By: #### L IPID, TSH, CMP, T7 #### [facility] [address] [address] [address] Jamie Blum PROF 14(COMP METB)on 022 Albumin [Mass/Vol] 3.6 g/dL Normal 3.4-5.0 [facility] Comment on above: Performed By: #### L IPID, TSH, CMP, T7 #### [facility] [address] [address] [address] Jamie Blum Albumin/Globulin [Mass ratio] 1.0 {ratio} Normal [facility] Comment on above: Performed By: #### L IPID, TSH, CMP, T7 #### [facility] [address] [address] [address] Jamie Blum ALP [Catalytic activity/Vol] 85 U/L Normal 46-116 [facility] Comment on above: Performed By: #### L IPID, TSH, CMP, T7 #### [facility] [address] [address] [address] Jamie Blum ALT [Catalytic activity/Vol] 19 U/L Normal 14-59 [facility] Comment on above: Performed By: #### L IPID, TSH, CMP, T7 #### [facility] [address] [address] [address] Jamie Blum Anion gap [Moles/Vol] 12.4 mmol/L Normal [facility] Comment on above: Performed By: #### L IPID, TSH, CMP, T7 #### [facility] [address] [address] [address] Jamie Blum AST [Catalytic activity/Vol] 16 U/L Normal 15-37 [facility] Comment on above: Performed By: #### L IPID, TSH, CMP, T7 #### [facility] [address] [address] [address] Jamie Blum Bilirubin [Mass/Vol] 0.5 mg/dL Normal 0.2-1.0 [facility] Comment on above: Performed By: #### L IPID, TSH, CMP, T7 #### [facility] [address] [address] [address] Jamie Blum Calcium [Mass/Vol] 8.7 mg/dL Normal 8.5-10.1 [facility] Comment on above: Performed By: #### L IPID, TSH, CMP, T7 #### [facility] [address] [place] [address] Dr. Jamie Blum Chloride [Moles/Vol] 102 mmol/L Normal 98-107 [facility] Comment on above: Performed By: #### L IPID, TSH, CMP, T7 #### [facility] [address] [place] [address] Dr. Jamie Blum CO2 [Moles/Vol] 28.5 mmol/L Normal 21.0-32.0 [facility] Comment on above: Performed By: #### L IPID, TSH, CMP, T7 #### [facility] [address] [place] [address] Dr. Jamie Blum Creatinine [Mass/Vol] 0.77 mg/dL Normal 0.55-1.02 [facility] Comment on above: Performed By: #### L IPID, TSH, CMP, T7 #### [facility] [address] [address] [address] Jamie Blum EGFR-AF VENEZUELAN >60 Normal >=60 [facility] Comment on above: Performed By: #### L IPID, TSH, CMP, T7 #### [facility] [address] [address] [address] Jamie Blum EGFR-NON AF VENEZUELAN >60 Normal >=60 [facility] Comment on above: Performed By: #### L IPID, TSH, CMP, T7 #### [facility] [address] [address] [address] Jamie Blum Globulin (S) [Mass/Vol] 3.7 g/dL Normal [facility] Comment on above: Performed By: #### L IPID, TSH, CMP, T7 #### [facility] [address] [address] [address] Jamie Blum Glucose [Mass/Vol] 94 mg/dL Normal 74-106 [facility] Comment on above: Performed By: #### L IPID, TSH, CMP, T7 #### [facility] [address] [address] [address] Jamie Blum Potassium [Moles/Vol] 3.9 mmol/L Normal 3.5-5.1 [facility] Comment on above: Performed By: #### L IPID, TSH, CMP, T7 #### [facility] [address] [address] [address] Jamie Blum Protein [Mass/Vol] 7.3 g/dL Normal 6.4-8.2 [facility] Comment on above: Performed By: #### L IPID, TSH, CMP, T7 #### [facility] [address] [address] [address] Jamie Blum Sodium [Moles/Vol] 139 mmol/L Normal 136-145 [facility] Comment on above: Performed By: #### L IPID, TSH, CMP, T7 #### [facility] [address] [address] [address] Jamie Blum Urea nitrogen [Mass/Vol] 11.0 mg/dL Normal 7.0-18.0 [facility] Comment on above: Performed By: #### L IPID, TSH, CMP, T7 #### [facility] [address] [address] [address] Jamie Blum Urea nitrogen/Creatinine [Mass ratio] 14.3 mg/mg Normal [facility] Comment on above: Performed By: #### L IPID, TSH, CMP, T7 #### [facility] [address] [place], [place] [address] Dr. Jamie Blum TSHon 05-01-2022 TSH 4.981 uIU/mL Critically high 0.358-3.740 [facility] Comment on above: Performed By: #### L IPID, TSH, CMP, T7 #### [facility] [address] [place], [place] [address] Dr. Jamie Blum Vital Signs Date Time Vital Sign Value Performing Clinician Faci lity 06-27-2024 14:07-0400 Body weight 86.64 kg Jamila FERRARI Work Phone: [facility] 06-27-2024 14:07-040 Diastolic blood pressure 72 mm[Hg] Jamila FERRARI Work Phone: [facility] 06-27-2024 14:07-0400 Systolic blood pressure 122 mm[Hg] Jamila FERRARI Work Phone: [facility] Encounters Encounter Date Encounter Type Care Provider Facility Start: 06-27-2024 End: 06-27-2024 Bamboo flowsheet aJmila FERRARI Work Phone: [facility] Start: 06-27-2024 End: 07-03-2024 Bamboo flowsheet Jamila FERRARI Work Phone: [facility] Start: 06-27-2024 End: 07-03-2024 Clinisync Result Encounter Jamila FERRARI Work Phone: [facility] External Department Unsolicited Start: 06-27-2024 End: 06-27-2024 Patient encounter procedure Jamila FERRARI Work Phone: [facility] Start: 06-27-2024 End: 06-27-2024 Periodic preventive med est patient 18-39 yrs Jamila FERRARI Work Phone: [facility] Comment on above: Well woman exam with routine gynecological exam Start: 06-27-2024 End: 06-27-2024 ambulatory JAMILA MEDINA Not Available Start: 07-11-2022 End: 07-12-2022 ambulatory KIMBERLY [facility] Facility: Start: 05-04-2022 Encounter for genera l adult medical examination without abnormal findings KIMBERLY CROWDER [facility] Start: 05-01-2022 End: 05-02-2022 ambulatory KIMBERLYPEREZ CROWDER Facility:[facility] Start: 05-01-2022 End: 05-02-2022 Encounter for general adult medical examination without abnormal findings KIMBERLY CROWDER Facility:[facility] Procedures Date Procedure Procedure Detail Performing Clinician Start: 06-27-2024 IGP,APTIMA HPV,AGE GDLN Jamila FERRARI Work Phone: Plan of Treatment Date Care Activity Detail Author Start: 06-27-2024 End: 06-27-2024 Patient encounter procedure 06/27/2024 2:00 PM EDT Office Visit [facility] [address] [place] [address] Jamila Medina PA [address] [place] [address] Arrived [facility] Comment on above: Arrived Cytology Cervical or vaginal smear or scraping study Pap Smear Pathology and Cytology Routine Well woman exam with routine gynecological exam Ordered: 06/27/2024 [facility] Work Phone: Comment on above: Ordered: 06/27/2024 Human papilloma viru s DNA [Presence] in Unspecified specimen by Probe with amplification HPV DNA probe, amplified Microbiology Routine Well woman exam with routine gynecological exam Ordered: 06/27/2024 [facility] Comment on above: Ordered: 06/27/2024 Payers Date Payer Category Payer Unknown [employer]ON[employer] FRONTP ATH [id number] 2023-Present [phone] [address] [place] [address] [id number] 1986 Unknown [id number] 1986 Unknown [id number] 1986 Unknown [id number] 1959 Unknown [id number] Social History Date Type Detail Facility Tobacco smoking stat [facility] Tobacco smoking consumption unknown [facility] Start: 1985 Sex assigned at Female [facility] Start: 04-18-2024 Gender identity Identifies as female gender (finding) [facility] Start: 04-18-2024 Sexual orientation Heterosexual (fin ding) [facility] History of Present illness Narrative 06-27-2024 VONDA Vila - 06/27/2024 2:00 PM EDT Note Date & Type Note Facility 06-27-2024 History of Presen t illness Narrative Reason for Appointment: Patient ID: Yesenia Kaur is a 38 y.o. female who presents for Gynecologic Exam Patient presents today for Annual Exam. MEDICATIONS Current Outpatient Medications Medication Instructions levothyroxine (Synthroid, Levoxyl) 25 MCG tablet take 1 tablet by mouth every morning ON AN EMPTY STOMACH for 90 days ALLERGIES Not on File PROBLEMS Active Ambulatory Problems Diagnosis Date Noted No Active Ambulatory Problems Resolved Ambulatory Problems Diagnosis Date Noted No Resolved Ambulatory Problems No Additional Past Medical History HISTORY PAST MEDICAL HISTORY SOCIAL HISTORY No past medical history on file. Social History Tobacco Use Smoking status: Not on file Smokeless tobacco: Not on file Substance Use Topics Alcohol use: Not on file Drug use: Not on file FAMILY HISTORY No family history on file. SURGICAL HISTORY History reviewed. No pertinent surgical history. REVIEW OF SYSTEMS Review of Systems: Review of Systems Constitutional: Negative. HENT: Negative. Eyes: Negative. Respiratory: Negative. Cardiovascular: Negative. Gastrointestinal: Negative. Genitourinary: Negative. Musculoskeletal: Negative. Skin: Negative. Neurological: Negative. All other systems reviewed and are negative. Hematological: Negative. Endocrine: Negative. Allergic/Immunologic: Negative. OBJECTIVE Objective: Physical Exam Constitutional: Appearance: Normal appearance. She is well-developed. Genitourinary: Vulva normal. Right Adnexa: not tender and no mass present. Left Adnexa: not tender and no mass present. No cervical discharge. Breasts: Breasts are soft. Right: Normal. Left: Normal. HENT: Head: Normocephalic. Nose: Nose normal. Mouth/Throat: Mouth: Mucous membranes are moist. Cardiovascular: Rate and Rhythm: Normal rate and regular rhythm. Pulmonary: Effort: Pulmonary effort is normal. Breath sounds: Normal breath sounds. Abdominal: General: Bowel sounds are normal. There is no distension. Palpations: Abdomen is soft. Tenderness: There is no abdominal tenderness. There is no guarding or rebound. Musculoskeletal: General: No swelling. Normal range of motion. Cervical back: Normal range of motion. Right lower leg: No edema. Left lower leg: No edema. Neurological: General: No focal deficit present. Mental Status: She is alert and oriented to person, place, and time. Skin: General: Skin is warm and dry. Psychiatric: Mood and Affect: Mood normal. Behavior: Behavior normal. Vitals and nursing note reviewed. Exam conducted with a digital experience manager present. Vitals: There is no height or weight on file to calculate BMI. BP: No LMP recorded. ASSESSMENT & PLAN ICD-10-CM 1. Well woman exam with routine gynecological exam Z01.419 Pap Smear HPV DNA probe, amplified Pt present today for annual visit. Pt has no issues and concerns. Breast exam preformed by Jamila Medina PA-C. Pap smear was preformed and collected by Jamila Medina PA-C. Pt to return back in a year for an annual visit. Documented by Lucía Jolley MA on behalf of: VONDA Vila documented in this encounter [facility] Evaluation note Note Date & Type Note Facility Evaluation note Diagnosis Well woman exam with routine gynecological exam Routine gynecological examination documented in this encounter [facility] Summary Purpose Family History No Family History Records FoundNo Family History Records FoundNo Family History Records Found Advance Directives No Advanced Directives Records FoundNo Advanced Directives Records FoundNo Advanced Directives Records Found Additional Source Comments INFORMATION SOURCE (unrecogn ized section and content) DATE CREATED AUTHOR 07/20/2022 [facility] DATE CREATED AUTHOR AUTHOR'S ORGANIZ ATION 06/29/2024 [facility] EP[facility] DATE CREATED AUTHOR AUTHOR'S ORGANIZ ATION 07/07/2024 [facility] EP[facility] Reason for Visit (unrecogniz ed section and content) Reason Comments Gynecologic Exam FOR RECORDS PERTAINING TO PATIENTS WHO ARE OR HAVE BEEN ENROLLED IN A CHEMICAL DEPENDENCY/SUBSTANCEABUSE PROGRAM, SOME INFORMATION MAY BE OMITTED. This clinical summary was aggregated from multiple sources. Caution should be exercised in using it in the provision of clinical care. This summary normalizes information from multiple sources, and as a consequence, information in this document may materially change the coding, format and clinical context of patient data. In addition, data may be omitted in some cases. CLINICAL DECISIONS SHOULD BE BASED ON THE PRIMARY CLINICAL RECORDS. [facility] [employer] [facility]. provides no warranty or guarantee of the accuracy or completeness of information in this document.
== END 2025-06-06 15:09 | disposition home or self-care (01) ==
LOC: LAB 15:09
PROVIDERS: PCP Nurse Practitioner Family; Visit Provider Family Medicine
DX: E03.9 Hypothyroidism, unspecified (principal)
CPT/HCPCS: 36415; 84436; 84443; 84481